=== PATIENT | male | born 1950 | race Caucasian/White ===

== ENCOUNTER → 2020-04-14 14:09 | Outpatient (CLI) | payer MEDICARE, SELFPAY | PROVIDERS: PCP Family Medicine; Referring Provider Family Medicine; Visit Provider Otolaryngology | DX: H91.20 Sudden idiopathic hearing loss, unspecified ear (principal); H83.02 Labyrinthitis, left ear ==

== ENCOUNTER → 2020-04-15 13:58 | Outpatient (CLI) | payer MEDICARE, SELFPAY | PROVIDERS: PCP Family Medicine; Referring Provider Otolaryngology; Visit Provider Family Medicine | DX: H91.23 Sudden idiopathic hearing loss, bilateral (principal) | CPT/HCPCS: 99203; 99212 ==

== ENCOUNTER → 2020-04-20 13:00 | Outpatient (CLI) | payer MEDICARE, SELFPAY | PROVIDERS: PCP Family Medicine; Referring Provider Otolaryngology; Visit Provider Family Medicine | DX: H91.22 Sudden idiopathic hearing loss, left ear (principal) | CPT/HCPCS: 99183; G0277 ==

== ENCOUNTER → 2020-04-21 09:11 | Outpatient (CLI) | payer MEDICARE, SELFPAY | PROVIDERS: PCP Family Medicine; Referring Provider Family Medicine; Visit Provider Family Medicine | DX: H91.22 Sudden idiopathic hearing loss, left ear (principal) | CPT/HCPCS: 99183; G0277 ==

== ENCOUNTER → 2020-04-22 09:39 | Outpatient (CLI) | payer MEDICARE, SELFPAY | PROVIDERS: PCP Family Medicine; Referring Provider Family Medicine; Visit Provider Family Medicine | DX: H91.22 Sudden idiopathic hearing loss, left ear (principal) | CPT/HCPCS: 99183; G0277 ==

== ENCOUNTER → 2020-04-23 09:30 | Outpatient (CLI) | payer MEDICARE, SELFPAY | PROVIDERS: PCP Family Medicine; Referring Provider Family Medicine; Visit Provider Family Medicine | DX: H91.22 Sudden idiopathic hearing loss, left ear (principal) | CPT/HCPCS: 99183; G0277 ==

== ENCOUNTER → 2020-04-24 09:17 | Outpatient (CLI) | payer MEDICARE, SELFPAY | PROVIDERS: PCP Family Medicine; Referring Provider Family Medicine; Visit Provider Family Medicine | DX: H91.22 Sudden idiopathic hearing loss, left ear (principal) | CPT/HCPCS: 99183; G0277 ==

== ENCOUNTER → 2020-04-27 15:21 | Outpatient (CLI) | payer MEDICARE, SELFPAY | PROVIDERS: PCP Family Medicine; Referring Provider Family Medicine; Visit Provider Family Medicine | DX: H91.22 Sudden idiopathic hearing loss, left ear (principal) | CPT/HCPCS: 99183; G0277 ==

== ENCOUNTER → 2020-04-28 09:13 | Outpatient (CLI) | payer MEDICARE, SELFPAY | PROVIDERS: PCP Family Medicine; Referring Provider Family Medicine; Visit Provider Family Medicine | DX: H91.22 Sudden idiopathic hearing loss, left ear (principal) | CPT/HCPCS: 99183; G0277 ==

== ENCOUNTER → 2020-04-29 10:03 | Outpatient (CLI) | payer MEDICARE, SELFPAY | PROVIDERS: PCP Family Medicine; Referring Provider Otolaryngology; Visit Provider Family Medicine | DX: H91.22 Sudden idiopathic hearing loss, left ear (principal) | CPT/HCPCS: 99183; G0277 ==

== ENCOUNTER → 2020-04-30 08:48 | Outpatient (CLI) | payer MEDICARE, SELFPAY | PROVIDERS: PCP Family Medicine; Referring Provider Family Medicine; Visit Provider Family Medicine | DX: H91.22 Sudden idiopathic hearing loss, left ear (principal) | CPT/HCPCS: 99183; G0277 ==

== ENCOUNTER → 2020-05-01 09:00 | Outpatient (CLI) | payer MEDICARE, SELFPAY | PROVIDERS: PCP Family Medicine; Referring Provider Family Medicine; Visit Provider Family Medicine | DX: H91.22 Sudden idiopathic hearing loss, left ear (principal) | CPT/HCPCS: 99183; G0277 ==

== ENCOUNTER → 2020-05-04 13:25 | Outpatient (CLI) | payer MEDICARE, SELFPAY | PROVIDERS: PCP Family Medicine; Referring Provider Family Medicine; Visit Provider Family Medicine | DX: H91.22 Sudden idiopathic hearing loss, left ear (principal) | CPT/HCPCS: 99183; G0277 ==

== ENCOUNTER → 2020-05-07 09:33 | Outpatient (CLI) | payer MEDICARE, SELFPAY | PROVIDERS: PCP Family Medicine; Referring Provider Otolaryngology; Visit Provider Family Medicine | DX: H91.22 Sudden idiopathic hearing loss, left ear (principal) | CPT/HCPCS: 99183; G0277 ==

== ENCOUNTER → 2020-05-08 09:09 | Outpatient (CLI) | payer MEDICARE, SELFPAY | PROVIDERS: PCP Family Medicine; Referring Provider Family Medicine; Visit Provider Family Medicine | DX: H91.22 Sudden idiopathic hearing loss, left ear (principal) | CPT/HCPCS: 99183; G0277 ==

== ENCOUNTER → 2020-05-11 14:33 | Outpatient (CLI) | payer MEDICARE, SELFPAY | PROVIDERS: PCP Family Medicine; Referring Provider Otolaryngology; Visit Provider Family Medicine | DX: H91.22 Sudden idiopathic hearing loss, left ear (principal) | CPT/HCPCS: 99183; G0277 ==

== ENCOUNTER → 2020-05-12 08:08 | Outpatient (CLI) | payer MEDICARE, SELFPAY ==
--- NOTE | 2020-05-12 | DI.US.S_ITS ---
PROCEDURE: US PERIPH VENOUS LOW EXTREM LT INDICATIONS: R/O DVT TECHNIQUE: Real-time imaging, as well as color and pulse Doppler interrogation, were performed of the lower extremity deep veins from the inguinal ligament to the popliteal fossa. COMPARISON: None. FINDINGS: The common femoral, femoral and popliteal veins are normally compressible, and free of intraluminal thrombus. Color and pulse Doppler demonstrate normal phasic intraluminal flow. There is normal augmentation response to distal compression maneuver. IMPRESSION: No sonographic evidence of DVT. Dictated by: Woody Stiles M.D. on 05/12/2020 at 9:24 Approved by: Woody Stiles M.D. on 05/12/2020 at 9:24
== END ==
PROVIDERS: PCP Family Medicine; Referring Provider Family Medicine; Visit Provider Family Medicine
DX: Z01.89 Encounter for other specified special examinations (principal)
CPT/HCPCS: 93971

== ENCOUNTER → 2020-05-12 08:55 | Outpatient (CLI) | payer MEDICARE, SELFPAY | PROVIDERS: PCP Family Medicine; Referring Provider Family Medicine; Visit Provider Family Medicine | DX: H91.22 Sudden idiopathic hearing loss, left ear (principal); Z01.89 Encounter for other specified special examinations | CPT/HCPCS: 93971; 99183; G0277 ==

== ENCOUNTER → 2020-05-13 09:15 | Outpatient (CLI) | payer MEDICARE, SELFPAY | PROVIDERS: PCP Family Medicine; Referring Provider Family Medicine; Visit Provider Family Medicine | DX: H91.22 Sudden idiopathic hearing loss, left ear (principal) | CPT/HCPCS: 70553; 99183; A9579; G0277 ==

== ENCOUNTER → 2020-05-13 13:15 | Outpatient (CLI) | payer MEDICARE, SELFPAY ==
--- NOTE | 2020-05-13 | DI.MRI.S_ITS ---
PROCEDURE: MR BRAIN (IAC) WWO CON INDICATIONS: Sensorineural hearing loss, bilateral TECHNIQUE: Noncontrast sagittal T1 spin echo, axial FLAIR, axial gradient echo, axial diffusion and ADC through the brain. Axial thin-slice 3D CISS, coronal TruFISP, axial T1 spin echo with fat saturation through the internal auditory canals. After the administration of contrast, thin slice axial and coronal T1 spin echo with fat saturation through the internal auditory canals, and axial T1 spin echo with fat saturation through the brain. COMPARISON: None. FINDINGS: Image quality: Excellent. Cerebellopontine angles: No cerebellopontine angle masses. Inner ear structures appear normally formed. No suspicious enhancement in the internal auditory canal or along the course of the 7th cranial nerve. CSF spaces: Ventricles are normal in size and shape. No extra-axial fluid collections. Basal cisterns are patent. Brain: No intracranial bleeds or mass effects. Gonzalez-white matter interface is intact. No abnormal intracranial enhancement. Diffusion weighted images demonstrate no acute ischemic insults. Brainstem appears normal. Normal intravascular flow voids are present. Skull and face: Calvarial marrow signal is normal. Orbits appear normal. Sinuses: Sinuses and mastoids are clear. IMPRESSION: Unremarkable exam of the internal auditory canals without finding to explain hearing loss. Remainder of the brain demonstrates no acute or significant finding. Dictated by: Woody Stiles M.D. on 05/13/2020 at 16:03 Approved by: Woody Stiles M.D. on 05/13/2020 at 16:11
== END ==
PROVIDERS: PCP Family Medicine; Referring Provider Otolaryngology; Visit Provider Otolaryngology
DX: H90.3 Sensorineural hearing loss, bilateral (principal)
CPT/HCPCS: 70553; A9579

== ENCOUNTER → 2020-05-14 09:08 | Outpatient (CLI) | payer MEDICARE, SELFPAY | PROVIDERS: PCP Family Medicine; Referring Provider Family Medicine; Visit Provider Family Medicine | DX: H91.22 Sudden idiopathic hearing loss, left ear (principal) | CPT/HCPCS: 99183; G0277 ==

== ENCOUNTER → 2020-05-15 11:32 | Outpatient (CLI) | payer MEDICARE, SELFPAY | PROVIDERS: PCP Family Medicine; Referring Provider Otolaryngology; Visit Provider Family Medicine | DX: H91.22 Sudden idiopathic hearing loss, left ear (principal) | CPT/HCPCS: 99183; G0277 ==

== ENCOUNTER → 2020-05-19 13:15 | Outpatient (CLI) | payer MEDICARE, SELFPAY | PROVIDERS: PCP Family Medicine; Referring Provider Family Medicine; Visit Provider Family Medicine | DX: H91.22 Sudden idiopathic hearing loss, left ear (principal) | CPT/HCPCS: 99183; G0277 ==

== ENCOUNTER → 2020-05-20 09:37 | Outpatient (CLI) | payer MEDICARE, SELFPAY | PROVIDERS: PCP Family Medicine; Referring Provider Family Medicine; Visit Provider Family Medicine | DX: H91.22 Sudden idiopathic hearing loss, left ear (principal) | CPT/HCPCS: 99183; G0277 ==